=== PATIENT | female | born 1975 | race Caucasian/White ===

== ENCOUNTER 2016-09-17 14:57 | Emergency (ER) | payer OTHER ==
[2016-09-17 15:03] VITALS: BMI 26.2
[2016-09-17 15:07] VITALS: TEMP 98.8; O2SAT 99
--- NOTE | 2016-09-17 15:28 | ED PDOC ---
Arrival/HPI - General Chief Complaint: GI Problem Time Seen by Provider: 09/17/16 15:04 - History of Present Illness Narrative History of Present Illness (Text): 09/17/16 15:25 41 y/o F w/ PMHx of hypothyroidism s/p thyroidectomy presents to the ED c/o suprapubic abd pain. Pt states pain started 2 days ago and is crampy in nature. Pain travels to pt's back. Pt denies previously having had this pain. Pt admits LKMP was in July. Pt denies N/V, F/C, D/C, vaginal bleeding or discharge. Urine test performed on arrival is positive. 09/17/16 17:00 (Alida Gonzáles) Past Medical History - Provider Review Nursing Documentation Reviewed: Yes - Infectious Disease Hx of Infectious Diseases: None - Cardiac Hx Cardiac Disorders: No - Pulmonary Hx Respiratory Disorders: No - Neurological Hx Neurological Disorder: No - HEENT Hx HEENT Disorder: No - Renal Hx Renal Disorder: No - Endocrine/Metabolic Hx Endocrine Disorders: Yes Hx Hypothyroidism: Yes - Hematological/Oncological Hx Blood Disorders: No - Integumentary Hx Dermatological Disorder: No - Musculoskeletal/Rheumatological Hx Musculoskeletal Disorders: No - Gastrointestinal Hx Gastrointestinal Disorders: No - Genitourinary/Gynecological Hx Genitourinary Disorders: No - Psychiatric Hx Psychophysiologic Disorder: No Hx Substance Use: No - Surgical History Hx Thyroidectomy: Yes (1/2) - Anesthesia Hx Anesthesia: Yes Hx Anesthesia Reactions: No Family/Social History - Physician Review Nursing Documentation Reviewed: Yes Family/Social History: No Known Family HX Smoking Status: Never Smoked Hx Alcohol Use: No Hx Substance Use: No Allergies/Home Meds Allergies/Adverse Reactions: Allergies No Known Allergies Allergy (Verified 09/17/16 15:03) Home Medications: Home Meds Medication Instructions Recorded Confirmed Levothyroxine [Synthroid] 50 mcg PO DAILY 06/16/15 09/17/16 Review of Systems - Physician Review All systems were reviewed & negative as marked: Yes - Review of Systems Constitutional: absent: Fevers Gastrointestinal: absent: Nausea Physical Exam Vital Signs Reviewed: Yes Temperature: Afebrile Blood Pressure: Normal Pulse: Regular Respiratory Rate: Normal Appearance: Positive for: Non-Toxic Pain Distress: Mild Mental Status: Positive for: Alert and Oriented X 3 - Systems Exam Head: Present: Atraumatic, Normocephalic Pupils: Present: PERRL Extroacular Muscles: Present: EOMI Conjunctiva: Present: Normal Mouth: Present: Moist Mucous Membranes Respiratory/Chest: Present: Clear to Auscultation, Good Air Exchange. No: Respiratory Distress, Accessory Muscle Use Cardiovascular: Present: Regular Rate and Rhythm, Normal S1, S2. No: Murmurs Abdomen: Present: Tenderness (suprapubic TTP) Upper Extremity: Present: Normal Inspection Lower Extremity: Present: Normal Inspection. No: Edema Neurological: Present: GCS=15, Speech Normal Skin: Present: Warm, Dry, Normal Color Psychiatric: Present: Alert, Oriented x 3, Normal Insight, Normal Concentration Medical Decision Making - Lab Interpretations I have reviewed the lab results: Yes Interpretation: Abnormal lab values (Moderate leukocyte esterase, small bacteria ) ED Course and Treatment: 09/17/16 15:30 41 y/o F w/ abd pain and positive urine test - CBC, CMP - B-HCG quant - Urinalysis - Pelvic US - Tylenol - set up worker referral - reassess and dispo 09/17/16 15:32 09/17/16 16:50 Pt away at ultrasound. will reassess when patient returns 09/17/16 17:33 Pt resting comfortably in bed. tolerating diet in ED. Stressed the importance of pt following up w/ Senior Facilities Manager for further evaluation. Pt expressed understanding. (Alida Gonzáles) 09/17/16 17:02 Patient seen with resident Came up with treatment and disposition plan with resident (Srinivasa Lopez) - Lab Interpretations Lab Results: 09/17/16 15:30 09/17/16 15:30 Lab Results 09/17/16 15:30: Sodium 136, Potassium 3.5 L, Chloride 100, Carbon Dioxide 26, Anion Gap 14, BUN 10, Creatinine 0.6, Est GFR ( Amer) > 60, Est GFR (Non- Af Amer) > 60, Random Glucose 85, Calcium 9.5, Total Bilirubin 0.7, AST 27, ALT 17, Alkaline Phosphatase 74, Total Protein 8.2, Albumin 4.3, Globulin 3.9, Albumin/Globulin Ratio 1.1 09/17/16 15:30: Urine Color Yellow, Urine Appearance Sl cloudy, Urine pH 6.0, Ur Specific [place] 1.015, Urine Protein Negative, Urine Glucose (UA) Negative, Urine Ketones Negative, Urine Blood Moderate H, Urine Nitrate Negative, Urine Bilirubin Negative, Urine Urobilinogen 0.2, Ur Leukocyte Esterase Moderate H, Urine RBC 0 - 2, Urine WBC 1 - 3, Ur Epithelial Cells 1 - 3, Urine Bacteria Small 09/17/16 15:30: WBC 6.7, RBC 4.25, Hgb 13.0, Hct 37.5, MCV 88.2, MCH 30.6, MCHC 34.7, RDW 13.1, Plt Count 226, MPV 9.9, Gran % 69.9 H, Lymph % (Auto) 21.1 L, [place] % (Auto) 8.0 H, Eos % (Auto) 0.9 L, Baso % (Auto) 0.1, Gran # 4.69, Lymph # 1.4, [place] # 0.5, Eos # 0.1, Baso # 0.01 09/17/16 15:30: Beta HCG, Quant 62505.00 H - RAD Interpretation Narrative RAD Interpretations (Text): 09/17/16 17:21 Pelvic US Findings: The uterus measures approximately 10.0 x 5.5 x 6.9 cm. Anteverted. Cervix length measures approximately 3.6 cm. There is a single intrauterine fetus present. 4 mm yolk sac. The gestational sac measures 2.8 cm and is compatible with a gestational age of 7 weeks 4 days. The crown-rump length measures 0.6 cm and is compatible with a gestational age of 6 weeks 2 days. heart motion is not detected during this examination. The right ovary is not visualized. The left ovary measures approximately 2.3 x 1.7 x 2.1 cm. Blood flow is demonstrated to the left ovary. Impression: Intrauterine compatible with gestational age 7 weeks 4 days by gestational sac calculation and 6 weeks 2 days by crown rump length calculation. heart rate was not detected during this examination. Correlate clinically including close follow-up as indicated. The right ovary was not visualized. (Alida Gonzáles) Radiology Orders: 09/17/16 15:21 OB TRANSVAGINAL [US] Routine - Medication Orders Current Medication Orders: Discontinued Medications Acetaminophen (Tylenol 325mg Tab) 650 mg PO STAT STA Stop: 09/17/16 15:32 Disposition/Present on Arrival - Present on Arrival Any Indicators Present on Arrival: No History of DVT/PE: No History of Uncontrolled Diabetes: No Urinary Catheter: No History of Decub. Ulcer: No History Surgical Site Infection Following: None - Disposition Have Diagnosis and Disposition been Completed?: Yes Disposition Time: 17:22 Patient Plan: Discharge - Disposition Diagnosis: Intrauterine Disposition: HOME/ ROUTINE Patient Problems: Current Active Problems Problem Status Onset Intrauterine Acute Condition: STABLE Discharge Instructions (ExitCare): (ED), Hypothyroidism in (ED) Additional Instructions: Follow up with you primary medical doctor within 1week Take medication as prescribed Follow up with Applications Analyst Take vitamins Return to the ED if any new or concerning symptoms. Prescriptions: Nitrofurantoin Macrocrystals [Macrobid] 100 mg PO BID #14 cap Referrals: Isael Duque DO [Staff Provider] - Follow up with primary [facility] [Outside] - Follow up with primary
[2016-09-17 15:45] LABS: ADD MANUAL DIFF? NO
[2016-09-17 15:48] LABS: BASO # 0.01 K/mm3 (0.0-2.0); BASO % 0.1 % (0.0-3.0); EOS # 0.1 (0.0-0.7); EOS % 0.9 % (1.5-5.0); GRAN # 4.69 (1.4-6.5); GRAN % 69.9 % (50.0-68.0); HEMATOCRIT 37.5 % (36.0-48.0); LYMPH # 1.4 (1.2-3.4); LYMPH % 21.1 % (22.0-35.0); MEAN CELL VOLUME 88.2 fL (80.0-105.0); MEAN CORPUSCULAR HEMOGLOBIN 30.6 pg (25.0-35.0); MEAN CORPUSCULAR HGB CONC 34.7 g/dl (31.0-37.0); MEAN PLATELET VOLUME 9.9 fl (7.0-11.0); MONO # 0.5 (0.1-0.6); PLATELET COUNT 226 10^3/uL (120.0-450.0); RED CELL DISTRIBUTION WIDTH 13.1 % (11.5-14.5); WHITE BLOOD COUNT 6.7 10^3/ul (4.5-11.0)
[2016-09-17 15:49] LABS: URINE APPEARANCE SL CLOUDY (CLEAR); URINE BILIRUBIN NEGATIVE (NEGATIVE); URINE BLOOD MODERATE (NEGATIVE); URINE COLOR YELLOW (YELLOW); URINE GLUCOSE (UA) NEGATIVE (NEGATIVE); URINE KETONE NEGATIVE (NEGATIVE); URINE LEUKOCYTE ESTERASE MODERATE Leu/uL (NEGATIVE); URINE PROTEIN NEGATIVE mg/dL (<30 mg/dL); URINE UROBILINOGEN 0.2 E.U./dL (<1 E.U./dL)
[2016-09-17 15:58] LABS: ALB/GLOB RATIO 1.1 (1.1-1.8); ALKALINE PHOSPHATASE 74 U/L (38-133); ALT/SGPT 17 U/L (7-56); AST/SGOT 27 U/L (15-39); BILIRUBIN,TOTAL 0.7 mg/dL (0.2-1.3); BLOOD UREA NITROGEN 10 mg/dL (7-21); CALCIUM 9.5 mg/dL (8.4-10.5); CARBON DIOXIDE 26 mmol/L (21-33); CHLORIDE 100 mmol/L (98-107); GFR AFRICAN-AMERICAN > 60; GLUCOSE,RANDOM 85 mg/dL (70-110); POTASSIUM 3.5 mmol/L (3.6-5.0); SODIUM 136 mmol/L (132-148); TOTAL PROTEIN 8.2 g/dL (5.8-8.3)
[2016-09-17 16:10] LABS: URINE BACTERIA SMALL (NEG)
[2016-09-17 16:11] LABS: URINE RBC 0 - 2 /hpf (0-2)
--- NOTE | 2016-09-17 17:19 | US ---
Indication: Abdominal pain Comparison: Transvaginal pelvic ultrasound performed 06/16/15 Technique: Transvaginal pelvic ultrasound Findings: The uterus measures approximately 10.0 x 5.5 x 6.9 cm. Anteverted. Cervix length measures approximately 3.6 cm. There is a single intrauterine fetus present. 4 mm yolk sac. The gestational sac measures 2.8 cm and is compatible with a gestational age of 7 weeks 4 days. The crown-rump length measures 0.6 cm and is compatible with a gestational age of 6 weeks 2 days. heart motion is not detected during this examination. The right ovary is not visualized. The left ovary measures approximately 2.3 x 1.7 x 2.1 cm. Blood flow is demonstrated to the left ovary. Impression: Intrauterine compatible with gestational age 7 weeks 4 days by gestational sac calculation and 6 weeks 2 days by crown rump length calculation. heart rate was not detected during this examination. Correlate clinically including close follow-up as indicated. The right ovary was not visualized.
[2016-09-17 17:50] VITALS: BP 102/55; PULSE 72; RESP 16
== END 2016-09-17 17:36 | disposition home or self-care (01) ==
LOC: ED 14:57
DX: O26.91 Pregnancy related conditions, unspecified, first trimester (principal); Z3A.01 Less than 8 weeks gestation of pregnancy

== ENCOUNTER 2017-07-19 15:18 | Emergency (ER) | payer OTHER ==
[2017-07-19 15:18] VITALS: BMI 26.2
[2017-07-19 15:29] VITALS: TEMP 97.4
[2017-07-19] MEDS ORDERED: Sodium Chloride 0.9% 1,000 ML IV STA (15:46)
[2017-07-19] MEDS ORDERED: DiphenhydrAMINE 50 mg/ml Inj IVP STA (15:46)
--- NOTE | 2017-07-19 15:59 | ED PDOC ---
Arrival/HPI - General Chief Complaint: Headache Time Seen by Provider: 07/19/17 15:45 Historian: Patient - History of Present Illness Narrative History of Present Illness (Text): 07/19/17 15:56 This 41 yo female with pmh hypothyroidism, presents to this emergency department complaining of headache, nausea, dizziness since this morning. Patient stated she has been getting JARRETT every month for several months. Patient describes dizziness as feeling generalized weakness. Patient denies diplopia, fever, dysarthria, weakness, paresthesias, urinary symptoms, vaginal discharge, vaginal bleeding, neck stiffness, or abnormal gait. Time/Duration: Other (noncontributory) Context: Home Past Medical History - Provider Review Nursing Documentation Reviewed: Yes - Infectious Disease Hx of Infectious Diseases: None - Reproductive Menopause: No - Cardiac Hx Cardiac Disorders: No - Pulmonary Hx Respiratory Disorders: No - Neurological Hx Neurological Disorder: No - HEENT Hx HEENT Disorder: No - Renal Hx Renal Disorder: No - Endocrine/Metabolic Hx Endocrine Disorders: Yes Hx Hypothyroidism: Yes - Hematological/Oncological Hx Blood Disorders: No - Integumentary Hx Dermatological Disorder: No - Musculoskeletal/Rheumatological Hx Musculoskeletal Disorders: No - Gastrointestinal Hx Gastrointestinal Disorders: No - Genitourinary/Gynecological Hx Genitourinary Disorders: No - Psychiatric Hx Psychophysiologic Disorder: No Hx Substance Use: No - Surgical History Hx Thyroidectomy: Yes (1/2) - Anesthesia Hx Anesthesia: Yes Hx Anesthesia Reactions: No Family/Social History - Physician Review Nursing Documentation Reviewed: Yes Family/Social History: Other (noncontributory) Smoking Status: Never Smoked Hx Alcohol Use: No Hx Substance Use: No Allergies/Home Meds Allergies/Adverse Reactions: Allergies No Known Allergies Allergy (Verified 09/17/16 15:03) Home Medications: Home Meds Medication Instructions Recorded Confirmed Levothyroxine [Synthroid] 50 mcg PO DAILY 06/16/15 07/19/17 Review of Systems - Review of Systems Constitutional: Normal. absent: Fatigue, Weight Change, Fevers Eyes: Normal ENT: Normal Respiratory: Normal Cardiovascular: Normal Gastrointestinal: Nausea. absent: Abdominal Pain, Constipation, Diarrhea, Vomiting Genitourinary Female: Normal Musculoskeletal: Normal Skin: Normal Neurological: Headache, Dizziness. absent: Focal Weakness, Gait Changes, Speech Changes, Facial Droop, Disequilibrium, Seizure Endocrine: Normal Hemo/Lymphatic: Normal Psychiatric: Normal Physical Exam Vital Signs Temp Pulse Resp BP Pulse Ox 07/19/17 16:14 69 18 125/71 98 07/19/17 15:25 97.4 F L 75 20 128/77 100 Temperature: Afebrile Blood Pressure: Normal Pulse: Regular Respiratory Rate: Normal Appearance: Positive for: Well-Appearing, Non-Toxic, Comfortable Pain Distress: None Mental Status: Positive for: Alert and Oriented X 3 - Systems Exam Head: Present: Atraumatic, Normocephalic Pupils: Present: PERRL Extroacular Muscles: Present: EOMI Conjunctiva: Present: Normal Mouth: Present: Moist Mucous Membranes Neck: Present: Normal Range of Motion Respiratory/Chest: Present: Clear to Auscultation, Good Air Exchange. No: Respiratory Distress, Accessory Muscle Use Cardiovascular: Present: Regular Rate and Rhythm, Normal S1, S2. No: Murmurs Abdomen: No: Tenderness, Distention, Peritoneal Signs Back: Present: Normal Inspection. No: CVA Tenderness Upper Extremity: Present: Normal Inspection, Normal ROM, Neurovascularly Intact , Capillary Refill < 2s. No: Cyanosis, Edema Lower Extremity: Present: Normal Inspection. No: Edema Neurological: Present: GCS=15, CN II-XII Intact, Speech Normal, Motor Func Grossly Intact, Normal Sensory Function, Normal Cerebellar Funct, Gait Normal, Memory Normal Skin: Present: Warm, Dry, Normal Color. No: Rashes Psychiatric: Present: Alert, Oriented x 3, Normal Insight, Normal Concentration Medical Decision Making ED Course and Treatment: 07/19/17 18:43 Re-evaluation. Patient feels better. Discussed results and plan with patient who expresses understanding. All questions answered and there is agreement with the plan to discharge home with instructions. Patient stable for discharge. Return if symptoms persist or worsen. Patient stated JARRETT has improved. Patient was recommended to take Motrin 1 day before menstrual period for 2-3 days, since she associated JARRETT with menses. To follow up PERSONNEL TECHNICIAN doctor for revaluation. To follow up pmd for revaluation as well. Return to emergency if symptoms worsen. Re-evaluation Time: 18:46 Reassessment Condition: Re-examined, Improved - Lab Interpretations Lab Results: Lab Results 07/19/17 16:05: Urine Color Yellow, Urine Appearance Clear, Urine pH 7.0, Ur Specific [place] 1.015, Urine Protein Negative, Urine Glucose (UA) Negative, Urine Ketones Negative, Urine Blood Trace-intact H, Urine Nitrate Negative, Urine Bilirubin Negative, Urine Urobilinogen 0.2, Ur Leukocyte Esterase Negative , Urine RBC 1 - 3, Urine WBC 2 - 5, Ur Epithelial Cells 1 - 3, Urine Bacteria Few, Urine HCG, Qual Negative I have reviewed the lab results: Yes Interpretation: Abnormal lab values (possible UTI) - RAD Interpretation Narrative RAD Interpretations (Text): 07/19/17 18:25 PROCEDURE: CT HEAD WITHOUT CONTRAST. FINDINGS: HEMORRHAGE: No intracranial hemorrhage. BRAIN: No mass effect or edema. No atrophy or chronic microvascular ischemic changes. VENTRICLES: Unremarkable. No hydrocephalus. CALVARIUM: Unremarkable. PARANASAL SINUSES: Unremarkable as visualized. No significant inflammatory changes. MASTOID AIR CELLS: Unremarkable as visualized. No inflammatory changes. OTHER FINDINGS: None. IMPRESSION: Normal CT of the Head. No intracranial mass, hemorrhage or evidence of acute infarct. Radiology Orders: 07/19/17 15:46 HEAD W/O CONTRAST [CT] Stat - Medication Orders Current Medication Orders: Discontinued Medications Diphenhydramine HCl (Benadryl) 50 mg IVP STAT STA Stop: 07/19/17 15:47 Last Admin: 07/19/17 16:30 Dose: 50 mg IVP Administration Document 07/19/17 16:30 SF (Rec: 07/19/17 16:45 SF [email or web address]) Charges for Administration # of IVP Administrations 1 Sodium Chloride (Sodium Chloride 0.9%) 1,000 mls @ 999 mls/hr IV .Q1H1M STA Stop: 07/19/17 16:46 Last Admin: 07/19/17 16:30 Dose: 999 mls/hr eMAR Start Stop Document 07/19/17 16:30 SF (Rec: 07/19/17 16:45 SF [email or web address]) Intravenous Solution Start Date 07/19/17 Start Time 16:30 End Date 07/19/17 End time 17:31 Total Infusion Time 61 Metoclopramide HCl (Reglan) 10 mg IVP STAT STA Stop: 07/19/17 15:47 Last Admin: 07/19/17 16:30 Dose: 10 mg IVP Administration Document 07/19/17 16:30 SF (Rec: 07/19/17 16:45 SF [email or web address]) Charges for Administration # of IVP Administrations 1 Disposition/Present on Arrival - Present on Arrival Any Indicators Present on Arrival: No History of DVT/PE: No History of Uncontrolled Diabetes: No Urinary Catheter: No History of Decub. Ulcer: No History Surgical Site Infection Following: None - Disposition Have Diagnosis and Disposition been Completed?: Yes Diagnosis: Headache Disposition: HOME/ ROUTINE Disposition Time: 18:48 Patient Plan: Discharge Patient Problems: Current Active Problems Problem Status Onset Headache Acute Condition: IMPROVED Discharge Instructions (ExitCare): Headache, Adult Additional Instructions: Call [facility] doctor for follow up visit in 1-2 days. Take medication as instructed. Return to emergency if symptoms worsen. Prescriptions: Cephalexin [cephalexin] 500 mg PO BID #10 cap Metoclopramide HCl [Reglan] 10 mg PO Q6H PRN #6 tablet PRN Reason: Headache Naproxen 500 mg PO BID PRN #10 tab PRN Reason: Pain, Severe (8-10) Referrals: Kari Gillis, [Primary Care Provider] - Follow up with primary [facility] [Outside] - Follow up with primary [facility] [place] [Outside] - Follow up with primary Forms: [employer] (Yoruba), WORK NOTE
[2017-07-19 16:16] LABS: URINE BILIRUBIN NEGATIVE (NEGATIVE); URINE BLOOD TRACE-INTACT (NEGATIVE); URINE GLUCOSE (UA) NEGATIVE (NEGATIVE); URINE LEUKOCYTE ESTERASE NEGATIVE Leu/uL (NEGATIVE); URINE PROTEIN NEGATIVE mg/dL (<30 mg/dL); URINE UROBILINOGEN 0.2 E.U./dL (<1 E.U./dL)
[2017-07-19 16:17] LABS: URINE APPEARANCE CLEAR (CLEAR); URINE COLOR YELLOW (YELLOW)
[2017-07-19 16:24] LABS: HCG,QUALITATIVE URINE NEGATIVE (NEGATIVE); URINE BACTERIA FEW (NEG)
--- NOTE | 2017-07-19 18:04 | CT ---
PROCEDURE: CT HEAD WITHOUT CONTRAST. HISTORY: JARRETT COMPARISON: None available. TECHNIQUE: Axial computed tomography images were obtained through the head/brain without intravenous contrast. Radiation dose: Total exam DLP = 801.54 mGy-cm. This CT exam was performed using one or more of the following dose reduction techniques: Automated exposure control, adjustment of the mA and/or kV according to patient size, and/or use of iterative reconstruction technique. FINDINGS: HEMORRHAGE: No intracranial hemorrhage. BRAIN: No mass effect or edema. No atrophy or chronic microvascular ischemic changes. VENTRICLES: Unremarkable. No hydrocephalus. CALVARIUM: Unremarkable. PARANASAL SINUSES: Unremarkable as visualized. No significant inflammatory changes. MASTOID AIR CELLS: Unremarkable as visualized. No inflammatory changes. OTHER FINDINGS: None. IMPRESSION: Normal CT of the Head. No intracranial mass, hemorrhage or evidence of acute infarct.
[2017-07-19 19:10] VITALS: BP 121/85; PULSE 68; RESP 17; O2SAT 100
== END 2017-07-19 19:06 | disposition home or self-care (01) ==
LOC: ED 15:18
DX: R51 Headache (principal)
CPT/HCPCS: 70450; 81001; 82948; 84703; 96361; 96374; 96375; 99285; J1200; J2765; J7040